=== PATIENT | female | born 1975 | race American Indian/Alaskan Native ===

== ENCOUNTER 2018-07-03 05:38 | Inpatient (IN) | payer SELFPAY ==
[2018-07-03] MEDS ORDERED: PEPCID IV ONE (07:15)
[2018-07-03] MEDS ORDERED: SOLU-Medrol IV ONE (07:15)
--- NOTE | 2018-07-03 07:16 | Emergency Department Report ---
HPI - General Chief Complaint: Allergic Reaction Time Seen by Provider: 07/03/18 07:08 - [facility] HPI: Room 7 The patient is a 42-year-old female presented with a chief complaint allergic reaction. The patient was eating omelette at [facility] and family reports she began complaining of shortness of breath. Patient has extensive allergy to spicy foods. Patient is intoxicated and sleepy and provides a very limited history. Patient complains of chest pain but will not give further details Location: [See above] Duration: [See above] Quality: [See above] Severity: [See above] Modifying factors: [see above] Context: [see above] Mode of transportation: [not driving] ED Past Medical Hx - Past Medical History Previous Medical History?: Yes Hx Hypertension: Yes Hx Diabetes: Yes (borderline DM) Additional medical history: PTSD, Uterine CA - Surgical History Past Surgical History?: Yes Hx Cholecystectomy: Yes Additional Surgical History: hysterectomy, gastric bypass - Family History Family history: no significant - Social History Smoking Status: Current Every Day Smoker Substance Use Type: Alcohol (occasional) ED Review of Systems ROS: Stated complaint: ALLERGIC REACTION Other details as noted in HPI Constitutional: no symptoms reported Respiratory: no symptoms reported Cardiovascular: chest pain Endocrine: no symptoms reported Physical Exam - Physical Exam Vital Signs: Vital Signs 07/03/18 07/03/18 07/03/18 05:51 06:05 06:54 Temperature 97.4 F L Pulse Rate 111 H 106 H Respiratory 20 20 17 Rate Blood Pressure 139/93 Blood Pressure 139/93 95/51 [Right] O2 Sat by Pulse 96 96 98 Oximetry Physical Exam: GENERAL: The patient is well-developed well-nourished female sleeping on stretcher not appearing to be in acute distress. Patient very sleepy and falls asleep immediately after one word answers to questions HEENT: Normocephalic. Atraumatic. Extraocular motions are intact. Patient has moist mucous membranes. NECK: Supple. No stridor CHEST/LUNGS: Clear to auscultation. There is no respiratory distress noted. HEART/CARDIOVASCULAR: Regular. There is no tachycardia. There is no gallop rub or murmur. ABDOMEN: Abdomen is soft, nontender. Patient has normal bowel sounds. There is no abdominal distention. SKIN: There is no rash. There is no edema. There is no diaphoresis. NEURO: The patient is very drowsy. The patient has normal speech MUSCULOSKELETAL: There is no evidence of acute injury. ED Course Vital Signs 07/03/18 07/03/18 07/03/18 05:51 06:05 06:54 Temperature 97.4 F L Pulse Rate 111 H 106 H Respiratory 20 20 17 Rate Blood Pressure 139/93 Blood Pressure 139/93 95/51 [Right] O2 Sat by Pulse 96 96 98 Oximetry ED Medical Decision Making - Lab Data Result diagrams: 07/03/18 07:13 07/03/18 07:13 Laboratory Tests 07/03/18 07/03/18 07/03/18 07:13 07:13 07:19 WBC 11.1 H RBC 3.86 Hgb 8.7 L Hct 27.9 L MCV 72 L MCH 23 L MCHC 31 RDW 17.9 H Plt Count 298 Lymph % (Auto) 16.0 [place] % (Auto) 10.7 H Eos % (Auto) 0.5 Baso % (Auto) 0.8 Lymph # 1.8 [place] # 1.2 H Eos # 0.1 Baso # 0.1 Seg Neutrophils % 72.0 H Seg Neutrophils # 8.0 H Sodium 142 Potassium 4.2 Chloride 106.6 Carbon Dioxide 22 Anion Gap 18 BUN 10 Creatinine 0.6 L Estimated GFR > 60 BUN/Creatinine Ratio 17 Glucose 105 H Calcium 8.7 Total Creatine Kinase 326 H CK-MB (CK-2) 1.9 CK-MB (CK-2) Rel Index 0.5 Troponin T < 0.010 Plasma/Serum Alcohol 0.11 H - EKG Data -: EKG Interpreted by Me EKG shows normal: sinus rhythm Rate: normal - EKG Data When compared to previous EKG there are: previous EKG unavailable Interpretation: nonspecific ST-T wave vinicio (early repolarization) - Radiology Data Radiology results: image reviewed (chest x-ray, lateral soft tissue neck x-ray) interpreted by me: Chest x-ray-no focal infiltrates, no pneumothorax Lateral soft tissue neck x-ray-no prevertebral swelling. No evidence of epiglottitis - Differential Diagnosis allergic reaction, ACS, pericarditis, GERD Critical care attestation.: If time is entered above; I have spent that time in minutes in the direct care of this critically ill patient, excluding procedure time. ED Disposition Clinical Impression: Allergic reaction, Chest pain Disposition: DC-09 OP ADMIT IP TO THIS HOSP Is pt being admited?: Yes Does the pt Need Aspirin: Yes Condition: Fair Instructions: Chest Pain (ED) Time of Disposition: 08:29 (hospitalist notified)
[2018-07-03 07:41] LABS: Basophils # (Auto) 0.1 K/mm3 (0.0-0.1); Basophils % (Auto) 0.8 % (0.0-1.8); Eosinophils # (Auto) 0.1 K/mm3 (0.0-0.4); Eosinophils % (Auto) 0.5 % (0.0-4.3); Hematocrit 27.9 % (30.3-42.9); Hemoglobin 8.7 gm/dl (10.1-14.3); Lymphocytes # (Auto) 1.8 K/mm3 (1.2-5.4); Mean Corpuscular HGB Conc 31 % (30-34); Mean Corpuscular Volume 72 fl (79-97); Monocytes # (Auto) 1.2 K/mm3 (0.0-0.8); Monocytes % (Auto) 10.7 % (0.0-7.3); Platelet Count 298 K/mm3 (140-440); Red Blood Count 3.86 M/mm3 (3.65-5.03); Red Cell Distribution Width 17.9 % (13.2-15.2)
[2018-07-03 07:53] LABS: Creatine Kinase MB 1.9 ng/mL (0.0-4.0)
[2018-07-03 07:55] LABS: BUN/Creatinine Ratio 17; Blood Urea Nitrogen 10 mg/dL (7-17); Calcium 8.7 mg/dL (8.4-10.2); Hemolysis Index 3
[2018-07-03] MEDS ORDERED: ASPIRIN PO ONE (08:27)
[2018-07-03] MEDS ORDERED: NITRO-BID 2% TP ONE (08:27)
[2018-07-03] MEDS ORDERED: NACL 0.9% 1000 ML 1,000 ML IV ONE (08:33)
--- NOTE | 2018-07-03 08:37 | XRay Report ---
FINAL REPORT EXAM: XR CHEST 1V AP HISTORY: chest pain TECHNIQUE: AP portable view(s) of the chest obtained. PRIORS: None. FINDINGS: No mediastinal shift. Cardiac silhouette is not enlarged. No pneumothorax, effusion, or focal pulmona ry opacity identified. No acute skeletal findings. IMPRESSION: No acute pulmonary finding identified.
--- NOTE | 2018-07-03 08:38 | XRay Report ---
FINAL REPORT EXAM: XR NECK SOFT TISSUE HISTORY: allergic reaction COMPARISONS: None. FINDINGS: AP and lateral views of the neck Straightening of the cervical spine. Prevertebral soft tissues are within normal limits. Tracheal air column appears patent. No hypo pharyngeal ballooning identified. No abnormal soft tissue calcificati on. IMPRESSION: Patent tracheal air column without focal paratracheal soft tissue abnormality identified. Consider fo llow-up CT for additional evaluation as warranted.
--- NOTE | 2018-07-03 11:37 | History and Physical Report ---
History of Present Illness Date of examination: 07/03/18 Date of admission: 07/03/18 08:26 Chief complaint: Throat closing and chest pains History of present illness: Patient is a 42 yo woman with a history of Uterine Cancer s/p hysterectomy 2014, hypertension, borderline DM type 2, PTSD, tobacco dependency and alcohol dependency who presents to [facility] ED with Throat closing up and chest pains. She went to [facility] this morning and tried someone else meal and immediately felt an abnormal oral sensation and spit the food out. She has multiple allergies to different spices and spicy foods. Her throat started to close up immediately with lip swelling followed by SOB and substernal constant severe nonradiating burning, sharp chest pains without relieving factors. PMH: as hpi PSH: Hysterectomy, Cholecystectomy, D-n-C, Gastric Bypass 2009 SH: 05/20 ppd tobacco, 2-3 glasses or red wine every night, no illicit drugs FH: maternal grandfather early heart attack in his 40s, hypertension and DM ROS: Constitutional: denies: fever ENT: + throat or neck pain Respiratory: has chronic arc trimmer cough, +shortness of breath Cardiovascular: +: chest pain Endocrine: denies unexplained weight loss or gain Gastrointestinal: denies: abdominal pain, nausea Genitourinary: denies: dysuria Rectal: denies no incontinence, no bleeding, no itching, no discharge Musculoskeletal: denies swelling, myaglia, muscle weakness Skin: denies: rash Neurological: denies: headache Hematological/Lymphatic: denies: easy bleeding or easy bruising Allergic/Immunologic: no urticaria, no allergic rhinitis, no anaphylaxis Psych: denies sadness or hopelessness, SI/HI Medications and Allergies Allergies Allergy/AdvReac Type Severity Reaction Status Date / Time amoxicillin Allergy Unknown Verified 07/03/18 05:58 sulfur [From Sulfur-8] Allergy Unknown Verified 07/03/18 05:58 -cillin Allergy Unknown Uncoded 07/03/18 05:58 chilli powder Allergy Unknown Uncoded 07/03/18 05:58 oshea Allergy Unknown Uncoded 07/03/18 05:58 spicy foods Allergy Unknown Uncoded 07/03/18 05:58 sulfate Allergy Unknown Uncoded 07/03/18 05:58 sulfur Allergy Unknown Uncoded 07/03/18 05:58 tomatoes Allergy Unknown Uncoded 07/03/18 07:20 Exam - Physical Exam Narrative exam: Gen: WDWN, NAD, Awake, lethargic, keeps falling asleep during her answers but Orientated x 3 HEENT: NCAT, EOMI, PERRL, OP Clear but swollen, upper lip mildly swollen, long fake eye lashes, Neck: supple, no adenopathy, no thyromegaly, no JVD CVS/Heart: RRR, normal S1S2, pulses present bilaterally Chest/Lungs: CTA B, Symmetrical chest expansion, good air entry bilaterally GI/Abdomen: soft, NTND, good bowel sounds, no guarding or rebound /Bladder: no suprapubic tenderness, no CVA or paraspinal tenderness Extermity/Skin: no c/c/e, no obvious rash MSK: FROM x 4 Neuro: CN 2-12 grossly intact, no new focal deficits Psych: calm - Constitutional Vitals: Temp Pulse Resp BP Pulse Ox 97.4 F L 94 H 21 92/49 98 07/03/18 05:51 07/03/18 08:39 07/03/18 07:45 07/03/18 08:39 07/03/18 07:45 Results - Labs CBC & Chem 7: 07/03/18 07:13 07/03/18 07:13 Labs: Abnormal lab results 07/03/18 07/03/18 07/03/18 Range/Units 07:13 07:13 07:19 WBC 11.1 H (4.5-11.0) K/mm3 Hgb 8.7 L (10.1-14.3) gm/dl Hct 27.9 L (30.3-42.9) % MCV 72 L (79-97) fl MCH 23 L (28-32) pg RDW 17.9 H (13.2-15.2) % [place] % (Auto) 10.7 H (0.0-7.3) % [place] # 1.2 H (0.0-0.8) K/mm3 Seg Neutrophils % 72.0 H (40.0-70.0) % Seg Neutrophils # 8.0 H (1.8-7.7) K/mm3 Creatinine 0.6 L (0.7-1.2) mg/dL Glucose 105 H (65-100) mg/dL Total Creatine Kinase 326 H (30-135) units/L Plasma/Serum Alcohol 0.11 H (0-0.07) % Assessment and Plan Patient is a 42 yo woman with a history of Uterine Cancer s/p hysterectomy 2014, hypertension, borderline DM type 2, PTSD, tobacco dependency and alcohol dependency who presents to [facility] ED with Throat closing up and chest pains. She went to [place] this morning and tried someone else meal and immediately felt an abnormal oral sensation and spit the food out. She has multiple allergies to different spices and spicy foods. Her throat started to close up immediately with lip swelling followed by SOB and substernal constant severe nonradiating burning, sharp chest pains without relieving factors. Allergic reaction to food with component of Angioedema, airways order, lip and op swollen: admit inpatient, treat with iv high dose steroids, h2 edward, histamine edward and prn benadryl Angioedema: iv steroids Hypotension, hypovolemia from etoh: treat with IVFs Alcohol intoxication suspected, BAL 0.11: treat Ciwa protocol, thiamine and folate, counseling done. Acute toxic metabolic encephalopathy due to ETOH: counseling done Tobacco dependency: counseling done, offered nicotine patch
[2018-07-03] MEDS ORDERED: HABITROL TD PRN (11:39)
[2018-07-03] MEDS ORDERED: BENADRYL IV PRN (11:40)
[2018-07-03] MEDS ORDERED: ATIVAN IV PRN ×2 (11:41)
[2018-07-03] MEDS ORDERED: HALDOL IV PRN (11:41)
[2018-07-03] MEDS ORDERED: TYLENOL PO PRN (11:43)
[2018-07-03] MEDS ORDERED: AMBIEN PO PRN (11:43)
[2018-07-03] MEDS ORDERED: ZOFRAN IV PRN (11:43)
[2018-07-03] MEDS: FOLVITE PO SCH (12:45)
[2018-07-03] MEDS: VITAMIN B-1 PO SCH (12:45)
[2018-07-03] MEDS ORDERED: VITAMIN B-1 ONE (14:55)
[2018-07-03] MEDS ORDERED: FOLVITE ONE (14:55)
[2018-07-03] MEDS ORDERED: SOLU-Medrol ONE (14:55)
[2018-07-03] MEDS ORDERED: NORCO 5/325 ONE (14:57)
[2018-07-03] MEDS ORDERED: D5NS 0.2% 1,000 ML IV ONE (14:59)
[2018-07-03] MEDS: NORCO 5/325 PO PRN ×2 (15:06→18:34)
[2018-07-03] MEDS: SOLU-Medrol IV SCH ×2 (15:06→23:21)
[2018-07-03] MEDS: CLARITIN PO SCH (15:10)
[2018-07-03] MEDS: D5NS 1,000 ML IV SCH (19:17)
[2018-07-03] MEDS: DUONEB *Not for PRN Use IH SCH (19:20)
[2018-07-03] MEDS: PEPCID PO SCH (21:39)
[2018-07-04] MEDS: D5NS 1,000 ML IV SCH (05:46)
[2018-07-04] MEDS: SOLU-Medrol IV SCH ×2 (05:46→14:54)
[2018-07-04 06:52] LABS: Hematocrit 27.9 % (30.3-42.9); Hemoglobin 8.9 gm/dl (10.1-14.3); Mean Corpuscular HGB Conc 32 % (30-34); Mean Corpuscular Volume 72 fl (79-97); Platelet Count 261 K/mm3 (140-440); Red Blood Count 3.88 M/mm3 (3.65-5.03); Red Cell Distribution Width 17.7 % (13.2-15.2)
[2018-07-04 07:14] LABS: BUN/Creatinine Ratio 30; Blood Urea Nitrogen 12 mg/dL (7-17); Calcium 8.3 mg/dL (8.4-10.2); Hemolysis Index 0
[2018-07-04] MEDS: DUONEB *Not for PRN Use IH SCH (07:33)
[2018-07-04] MEDS: NORCO 5/325 PO PRN ×2 (10:07→15:23)
[2018-07-04] MEDS: VITAMIN B-1 PO SCH (10:07)
[2018-07-04] MEDS: CLARITIN PO SCH (10:07)
[2018-07-04] MEDS: PEPCID PO SCH (10:07)
[2018-07-04] MEDS: FOLVITE PO SCH (10:07)
[2018-07-04] MEDS ORDERED: LEXISCAN IV ONE (11:34)
--- NOTE | 2018-07-04 12:45 | Progress Note ---
Assessment and Plan Assessment and plan: Patient is a 42 yo woman with a history of Uterine Cancer s/p hysterectomy 2015, hypertension, borderline DM type 2, PTSD, tobacco dependency and alcohol dependency who presents to [facility] ED with Throat closing up and chest pains. She went to [facility] this morning and tried someone else meal and immediately felt an abnormal oral sensation and spit the food out. She has multiple allergies to different spices and spicy foods. Her throat started to close up immediately with lip swelling followed by SOB and substernal constant severe nonradiating burning, sharp chest pains without relieving factors. Allergic reaction to food with component of Angioedema, airways order, lip and o p swollen: admit inpatient, treat with iv high dose steroids, h2 edward, histamine edward and prn benadryl Angioedema: treated with iv steroids Hypotension, hypovolemia from etoh: treat with IVFs Alcohol intoxication suspected, BAL 0.11: treat Ciwa protocol, thiamine and folate, counseling done. Acute toxic metabolic encephalopathy due to ETOH: counseling done Tobacco dependency: counseling done, offered nicotine patch History Interval history: Patient was seen and examined. Follow-up on current diagnosis of lip swelling resolving and chest pain. Overnight uneventful. Patient denies any shortness breath, nausea/vomiting or severe headaches. Imaging, nursing note, chart, labs and old chart reviewed. Discussed with patient. Hospitalist Physical - Physical exam Narrative exam: Gen: WDWN, NAD, Awake, lethargic, keeps falling asleep during her answers but Orientated x 3 HEENT: NCAT, EOMI, PERRL, OP Clear reduced swollen, upper lip mildly swollen, long fake eye lashes, Neck: supple, no adenopathy, no thyromegaly, no JVD CVS/Heart: RRR, normal S1S2, pulses present bilaterally Chest/Lungs: CTA B, Symmetrical chest expansion, good air entry bilaterally GI/Abdomen: soft, NTND, good bowel sounds, no guarding or rebound /Bladder: no suprapubic tenderness, no CVA or paraspinal tenderness Extermity/Skin: no c/c/e, no obvious rash MSK: FROM x 4 Neuro: CN 2-12 grossly intact, no new focal deficits Psych: calm - Constitutional Vitals: Temp Pulse Resp BP Pulse Ox 98.4 F 70 18 116/74 98 07/04/18 08:00 07/04/18 09:57 07/04/18 09:57 07/04/18 09:57 07/04/18 09:57 Results - Labs CBC & Chem 7: 07/04/18 05:54 07/04/18 05:54 Labs: Laboratory Last Values WBC 10.7 K/mm3 (4.5-11.0) 07/04/18 05:54 RBC 3.88 M/mm3 (3.65-5.03) 07/04/18 05:54 Hgb 8.9 gm/dl (10.1-14.3) L 07/04/18 05:54 Hct 27.9 % (30.3-42.9) L 07/04/18 05:54 MCV 72 fl (79-97) L 07/04/18 05:54 MCH 23 pg (28-32) L 07/04/18 05:54 MCHC 32 % (30-34) 07/04/18 05:54 RDW 17.7 % (13.2-15.2) H 07/04/18 05:54 Plt Count 261 K/mm3 (140-440) 07/04/18 05:54 Lymph % (Auto) 16.0 % (13.4-35.0) 07/03/18 07:13 [place] % (Auto) 10.7 % (0.0-7.3) H 07/03/18 07:13 Eos % (Auto) 0.5 % (0.0-4.3) 07/03/18 07:13 Baso % (Auto) 0.8 % (0.0-1.8) 07/03/18 07:13 Lymph # 1.8 K/mm3 (1.2-5.4) 07/03/18 07:13 [place] # 1.2 K/mm3 (0.0-0.8) H 07/03/18 07:13 Eos # 0.1 K/mm3 (0.0-0.4) 07/03/18 07:13 Baso # 0.1 K/mm3 (0.0-0.1) 07/03/18 07:13 Seg Neutrophils % 72.0 % (40.0-70.0) H 07/03/18 07:13 Seg Neutrophils # 8.0 K/mm3 (1.8-7.7) H 07/03/18 07:13 Sodium 141 mmol/L (137-145) 07/04/18 05:54 Potassium 4.3 mmol/L (3.6-5.0) 07/04/18 05:54 Chloride 107.3 mmol/L (98-107) H 07/04/18 05:54 Carbon Dioxide 22 mmol/L (22-30) 07/04/18 05:54 Anion Gap 16 mmol/L 07/04/18 05:54 BUN 12 mg/dL (7-17) 07/04/18 05:54 Creatinine 0.4 mg/dL (0.7-1.2) L 07/04/18 05:54 Estimated GFR > 60 ml/min 07/04/18 05:54 BUN/Creatinine Ratio 30 % 07/04/18 05:54 Glucose 135 mg/dL (65-100) H 07/04/18 05:54 Calcium 8.3 mg/dL (8.4-10.2) L 07/04/18 05:54 Total Creatine Kinase 326 units/L (30-135) H 07/03/18 07:13 CK-MB (CK-2) 1.9 ng/mL (0.0-4.0) 07/03/18 07:13 CK-MB (CK-2) Rel Index 0.5 (0-4) 07/03/18 07:13 Troponin T < 0.010 ng/mL (0.00-0.029) 07/04/18 10:30 Plasma/Serum Alcohol 0.11 % (0-0.07) H 07/03/18 07:19
--- NOTE | 2018-07-04 12:53 | Discharge Summary ---
Providers - Providers Date of Admission: 07/03/18 08:26 Date of discharge: 07/04/18 Attending physician: CURTIS DENT Primary care physician: ROSALBA CLINE Hospitalization Condition: Stable Hospital course: Patient is a 42 yo woman with a history of Uterine Cancer s/p hysterectomy 2014, hypertension, borderline DM type 2, PTSD, tobacco dependency and alcohol depen dency who presents to [facility] ED with Throat closing up and chest pains. She went to [place] this morning and tried someone else meal and immediately felt an abnormal oral sensation and spit the food out. She has multiple allergies to different spices and spicy foods. Her throat started to close up immediately with lip swelling followed by SOB and substernal constant severe nonradiating burning, sharp chest pains without relieving factors. Allergic reaction to food with component of Angioedema, airways order, lip and op swollen: admit inpatient, treat with iv high dose steroids, h2 edward, histamine edward and prn benadryl Angioedema: treated with iv steroids Chest pains: stress test pending Hypotension, hypovolemia from etoh: treat with IVFs Alcohol intoxication suspected, BAL 0.11: treat Ciwa protocol, thiamine and folate, counseling done. Acute toxic metabolic encephalopathy due to ETOH: counseling done Tobacco dependency: counseling done, offered nicotine patch Disposition: DC-01 TO HOME OR SELFCARE Time spent for discharge: 34 minutes Core Measure Documentation - Palliative Care Palliative Care/ Comfort Measures: Not Applicable - Core Measures Any of the following diagnoses?: none - VTE Discharge Requirements Deep Vein Thrombosis/Pulmonary Embolism Present on Admission: No Has pt received <5 days of overlap therapy or INR<2.0: No Anticoagulant overlap therapy prescribed at discharge: No Contraindication No Overlap Therapy order at DC: Not Indicated Exam - Physical Exam Narrative exam: Gen: WDWN, NAD, Awake, lethargic, keeps falling asleep during her answers but Orientated x 3 HEENT: NCAT, EOMI, PERRL, OP Clear reduced swollen, upper lip mildly swollen, long fake eye lashes, Neck: supple, no adenopathy, no thyromegaly, no JVD CVS/Heart: RRR, normal S1S2, pulses present bilaterally Chest/Lungs: CTA B, Symmetrical chest expansion, good air entry bilaterally GI/Abdomen: soft, NTND, good bowel sounds, no guarding or rebound /Bladder: no suprapubic tenderness, no CVA or paraspinal tenderness Extermity/Skin: no c/c/e, no obvious rash MSK: FROM x 4 Neuro: CN 2-12 grossly intact, no new focal deficits Psych: calm - Constitutional Vitals: Temp Pulse Resp BP Pulse Ox 98.4 F 70 18 114/63 98 07/04/18 08:00 07/04/18 09:57 07/04/18 09:57 07/04/18 12:24 07/04/18 09:57 Plan Activity: other Diet: low salt Special Instructions: smoking cessation Follow up with: ROSALBA CILNE [Primary Care Provider] - 7 Days Prescriptions: ALBUTEROL Inhaler(NF) [VENTOLIN Inhaler(NF)] 1 puff IH Q4H PRN #1 inha PRN Reason: Shortness Of Breath Famotidine [Pepcid] 20 mg PO DAILY #7 tablet Loratadine [Claritin] 10 mg PO DAILY #7 tablet methylPREDNISolone [Medrol Dose Hakeem] 1 dose PO DAILY #1 pack Nicotine [Habitrol] 14 mg TD QDAY PRN #7 patch PRN Reason: Nicotine Cravings Thiamine [Vitamin B-1] 100 mg PO QDAY #30 tablet
[2018-07-04 17:03] VITALS: BP 105/55
--- NOTE | 2018-07-05 00:03 | Treadmill Report ---
MYOCARDIAL PERFUSION IMAGING STUDY Resting images revealed homogeneous radioisotope activity throughout the myocardium. On post-Lexiscan again similar distribution is noted. On gated scan, the EF was 71%. There is no TID. It was normal at 0.96. IMPRESSION: This test is negative for ischemia. JOB# [id number] LEESA/NTS
--- NOTE | 2018-07-05 00:04 | Treadmill Report ---
NUCLEAR PERFUSION SCAN REFERRING PHYSICIAN: Hospitalist service. PROTOCOL: The patient was brought to the stress lab in a postabsorptive state, given 10 mCi of technetium 99m at rest. The patient underwent rest imaging. At peak stress, the patient was given 26 mCi of technetium 99m. Shortly thereafter underwent stress imaging, raw imaging reveals mild GI artifact. No significant motion artifact. SPECT imaging examined carefully in horizontal long axis, vertical long axis, short axis views. There is normal homogenous uptake of radioisotope in all reported segments. No evidence of significant fixed or reversible perfusion defects suggestive of active ischemia or prior infarction. Normal left ventricular systolic performance with a calculated ejection fraction 72%. No TID. CONCLUSIONS: Technically somewhat difficult study due to GI artifact, but grossly no evidence of significant fixed or reversible perfusion defect suggestive of prior infarction or ischemia. Gated wall motion reveals normal systolic performance without evidence of transient ischemic dilatation or stress-induced segmental wall motion abnormalities. JOB# [id number] TREV/REEMA
== END 2018-07-04 18:30 | disposition home or self-care (01) | DRG 915 ==
LOC: ED 05:38 → 4A 08:26
PROVIDERS: ADMIT Internal Medicine; ATTEND Internal Medicine
DX: T78.3XXA Angioneurotic edema, initial encounter (principal); G92 Toxic encephalopathy; R07.9 Chest pain, unspecified; I10 Essential (primary) hypertension; F43.10 Post-traumatic stress disorder, unspecified; F17.200 Nicotine dependence, unspecified, uncomplicated; T78.1XXA Other adverse food reactions, not elsewhere classified, initial encounter; I95.9 Hypotension, unspecified; F10.129 Alcohol abuse with intoxication, unspecified; E86.1 Hypovolemia; E11.9 Type 2 diabetes mellitus without complications; X58.XXXA Exposure to other specified factors, initial encounter; Z90.710 Acquired absence of both cervix and uterus; Z71.41 Alcohol abuse counseling and surveillance of alcoholic; Z71.6 Tobacco abuse counseling; Z85.42 Personal history of malignant neoplasm of other parts of uterus; Z90.49 Acquired absence of other specified parts of digestive tract; Z98.84 Bariatric surgery status; Z82.49 Family history of ischemic heart disease and other diseases of the circulatory system; Z83.3 Family history of diabetes mellitus; Z88.1 Allergy status to other antibiotic agents; Z88.2 Allergy status to sulfonamides; Z91.018 Allergy to other foods
CPT/HCPCS: 36415; 70360; 71045; 78452; 80048; 80320; 82550; 82553; 84484; 85025; 85027; 93005; 93010; 93017; 94640; 96361; 96374; 96375; 99406; G0378; A9502; G0480; J2785; J2930; J7030; J7042